=== PATIENT | male | born 1995 | race Caucasian/White ===

== ENCOUNTER 2019-08-31 20:41 | Emergency (ER) | payer SELFPAY ==
[2019-08-31] MEDS ORDERED: BUPIVACAINE 0.5% PF 10 ML VIAL ONE (21:38)
[2019-08-31] MEDS ORDERED: LIDOCAINE 1% MPF 5 ML VIAL ONE (21:38)
--- NOTE | 2019-08-31 22:19 | ER ---
Nurse's Notes [facility] Name: Ryan Leonard Age: 24 yrs Sex: Male : 1995 Arrival Date: 08/31/2019 Time: 20:43 Bed 10 Private MD: Diagnosis: Laceration without foreign body of left thumb with damage to nail Presentation: 08/31 20:48 Presenting complaint: Patient states: Laceration to tip of left thumb with kitchen lp1 knife, not actively bleeding at this time. Transition of care: patient was not received from another setting of care. Onset of symptoms was August 31, 2019. Risk Assessment: Do you want to hurt yourself or someone else? Patient reports no desire to harm self or others. Initial Sepsis Screen: Does the patient meet any 2 criteria? No. Patient's initial sepsis screen is negative. Does the patient have a suspected source of infection? No. Patient's initial sepsis screen is negative. Care prior to arrival: None. 20:48 Method Of Arrival: Ambulatory lp1 20:48 Acuity: MICHELLE 4 lp1 Historical: - Allergies: 20:49 No Known Allergies; lp1 - Home Meds: 20:49 None [Active]; lp1 - PMHx: 20:49 None; lp1 - PSHx: 20:49 Knee surgery; lp1 - Immunization history:: Adult Immunizations up to date, Last tetanus immunization: up to date. - Social history:: Smoking status: Patient/guardian denies using tobacco. - Ebola Screening: : No symptoms or risks identified at this time. Screenin:49 Abuse screen: Denies threats or abuse. Denies injuries from another. Nutritional lp1 screening: No deficits noted. Tuberculosis screening: No symptoms or risk factors identified. Fall Risk None identified. Assessment: 20:40 Neuro: Level of Consciousness is awake, alert. Cardiovascular: Capillary refill < 3 rr5 seconds Patient's skin is warm and dry. Respiratory: Airway is patent Respiratory effort is even, unlabored, Respiratory pattern is regular, symmetrical. GI: No signs and/or symptoms were reported involving the gastrointestinal system. Derm: Skin is healthy with good turgor, Skin temperature is warm. Musculoskeletal: Capillary refill < 3 seconds. 20:40 General: Appears in no apparent distress. comfortable, Behavior is calm, cooperative, rr5 appropriate for age. : No signs and/or symptoms were reported regarding the genitourinary system. EENT: No signs and/or symptoms were reported regarding the EENT system. Derm: Wound noted thumb Wound is lacerated wound. Musculoskeletal: Circulation, motion, and sensation intact. 20:40 Pain: Denies pain. rr5 21:20 Reassessment: Patient appears in no apparent distress at this time. No changes from rr5 previously documented assessment. Patient is alert, oriented x 3, equal unlabored respirations, skin warm/dry/pink. 22:31 Reassessment: Patient appears in no apparent distress at this time. Patient is alert, rr5 oriented x 3, equal unlabored respirations, skin warm/dry/pink. discharge instruction given and explained without complaints made. Vital Signs: 20:49 BP 149 / 92; Pulse 81; Resp 18; Temp 98.1(O); Pulse Ox 97% on R/A; Weight 124.74 kg; lp1 Height 6 ft. 0 in. (182.88 cm); Pain 0/10; 22:30 BP 131 / 74; Pulse 75; Resp 17; Pulse Ox 99% ; rr5 20:49 Body Mass Index 37.30 (124.74 kg, 182.88 cm) lp1 ED Course: 20:43 Patient arrived in ED. cl3 20:48 Triage completed. lp1 20:48 Arm band placed on left wrist. lp1 20:49 Patient has correct armband on for positive identification. lp1 20:51 Mason Acosta RN is Primary Nurse. rr5 21:28 Kaden Stack MD is Attending Physician. [facility] 21:33 Jennifer Jackson FNP-C is [facility]. kb 21:33 Kaden Stack MD is Attending Physician. kb 22:15 Assist provider with laceration repair on left hand that was 2.5 cm. or less using rr5 sutures. Set up tray. Performed by Jennifer SHEA Dressed with 4X4s, Neosporin, Patient tolerated well. 22:31 Patient did not have IV access during this emergency room visit. rr5 Administered Medications: 21:42 Drug: Bupivacaine (0.5 %) 1 vials {Note: given by jennifer dixon .} Volume: 10 ml; Route: rr5 Infiltration; 22:30 Follow up: Response: No adverse reaction rr5 21:42 Drug: Lidocaine (1 %) 1 vials {Note: given by jennifer DIXON.} Volume: 5 ml; Route: rr5 Infiltration; 22:30 Follow up: Response: No adverse reaction rr5 Outcome: 22:18 Discharge ordered by . piyush 22:31 Discharged to home ambulatory, with family. rr5 22:31 Condition: stable 22:31 Discharge instructions given to patient, Instructed on discharge instructions, follow up and referral plans. Demonstrated understanding of instructions, follow-up care. 22:33 Patient left the ED. rr5 Signatures: Jennifer Jackson, PLASTIC SHEETS SUPERVISOR-C PLASTIC SHEETS SUPERVISOR-Ckb Kaden Stack MD MD cha Pena, Laura RN RN lp1 Mason Acosta RN RN rr5 Yoni Payton cl3 Corrections: (The following items were deleted from the chart) 21:03 20:40 General: Appears in no apparent distress. comfortable, Behavior is appropriate rr5 for age, rr5 21:03 20:40 Pain: Unable to use pain scale. FLACC scale score is 0 out of 10. rr5 rr5 21:03 20:40 : No signs and/or symptoms were reported regarding the genitourinary system. rr5rr5 21:03 20:40 EENT: Ear canal clear on left ear and right ear Nares with foreign body noted on rr5 right white foreign body noted.. rr5 21:03 20:40 Derm: Skin is intact, Skin temperature is warm rr5 rr5 21:05 21:01 Musculoskeletal: Circulation, motion, and sensation intact. rr5 rr5 21:05 21:01 Derm: Wound noted thumb Wound is lacerated wound rr5 rr5 21:05 21:01 General: Appears in no apparent distress. uncomfortable, Behavior is calm, rr5 cooperative, appropriate for age, rr5 21:05 21:01 Pain: Complains of pain in thumb Pain does not radiate. Pain Quality of pain is rr5 described as aching, Pain began suddenly, Is continuous, rr5 21:05 21:01 : No signs and/or symptoms were reported regarding the genitourinary system. rr5rr5 21:05 21:01 EENT: No signs and/or symptoms were reported regarding the EENT system. rr5 rr5 22:33 22:31 No provider procedures requiring assistance completed. rr5 rr5
--- NOTE | 2019-08-31 22:19 | EDPHYS ---
Physician Documentation [facility] Name: Ryan Leonard Age: 24 yrs Sex: Male : 1995 Arrival Date: 08/31/2019 Time: 20:43 Bed 10 Private MD: ED Physician Kaden Stack HPI: 08/31 21:44 This 24 yrs old Male presents to ER via Ambulatory with complaints of kb Laceration To Thumb. 21:44 The patient has a laceration related to: cooking, occurred at home, and there are no kb complicating factors. The injury was accidental. The laceration(s) is(are) located on the dorsal aspect of distal phalanx of left thumb. Onset: The symptoms/episode began/occurred just prior to arrival. Associated signs and symptoms: The patient has no apparent associated signs or symptoms. The patient has not experienced similar symptoms in the past. The patient has not recently seen a physician. Pt reports he was chopping vegetables and accidentally cut his thumb. Historical: - Allergies: 20:49 No Known Allergies; lp1 - Home Meds: 20:49 None [Active]; lp1 - PMHx: 20:49 None; lp1 - PSHx: 20:49 Knee surgery; lp1 - Immunization history:: Adult Immunizations up to date, Last tetanus immunization: up to date. - Social history:: Smoking status: Patient/guardian denies using tobacco. - Ebola Screening: : No symptoms or risks identified at this time. ROS: 21:43 Constitutional: Negative for fever, chills, and weight loss, Neck: Negative for injury, kb pain, and swelling, Cardiovascular: Negative for chest pain, palpitations, and edema, Respiratory: Negative for shortness of breath, cough, wheezing, and pleuritic chest pain, Abdomen/GI: Negative for abdominal pain, nausea, vomiting, diarrhea, and constipation, Back: Negative for injury and pain, MS/Extremity: Negative for injury and deformity, Neuro: Negative for headache, weakness, numbness, tingling, and seizure. 21:43 Skin: Positive for laceration(s), of the dorsal aspect of distal phalanx of left thumb. Exam: 21:41 Constitutional: This is a well developed, well nourished patient who is awake, alert, kb and in no acute distress. Head/Face: Normocephalic, atraumatic. ENT: Nares patent. No nasal discharge, no septal abnormalities noted. Tympanic membranes are normal and external auditory canals are clear. Oropharynx with no redness, swelling, or masses, exudates, or evidence of obstruction, uvula midline. Mucous membranes moist. Neck: Trachea midline, no thyromegaly or masses palpated, and no cervical lymphadenopathy. Supple, full range of motion without nuchal rigidity, or vertebral point tenderness. No Meningismus. Chest/axilla: Normal chest wall appearance and motion. Nontender with no deformity. No lesions are appreciated. Cardiovascular: Regular rate and rhythm with a normal S1 and S2. No gallops, murmurs, or rubs. Normal PMI, no JVD. No pulse deficits. Respiratory: Lungs have equal breath sounds bilaterally, clear to auscultation and percussion. No rales, rhonchi or wheezes noted. No increased work of breathing, no retractions or nasal flaring. Abdomen/GI: Soft, non-tender, with normal bowel sounds. No distension or tympany. No guarding or rebound. No evidence of tenderness throughout. MS/ Extremity: Pulses equal, no cyanosis. Neurovascular intact. Full, normal range of motion. Neuro: Awake and alert, GCS 15, oriented to person, place, time, and situation. Cranial nerves II-XII grossly intact. Motor strength 5/5 in all extremities. Sensory grossly intact. Cerebellar exam normal. Normal gait. 21:41 Skin: injury, laceration(s), the wound is approximately 2 cm(s), of the dorsal aspect of distal phalanx of left thumb, that can be described as clean, no foreign body, linear, without bleeding. Vital Signs: 20:49 BP 149 / 92; Pulse 81; Resp 18; Temp 98.1(O); Pulse Ox 97% on R/A; Weight 124.74 kg; lp1 Height 6 ft. 0 in. (182.88 cm); Pain 0/10; 22:30 BP 131 / 74; Pulse 75; Resp 17; Pulse Ox 99% ; rr5 20:49 Body Mass Index 37.30 (124.74 kg, 182.88 cm) lp1 Procedures: 21:42 Nerve block: (digital) of dorsal aspect of distal phalanx of left thumb Medication: kb Lidocaine 1% without epinephrine Marcaine 0.5%, Amount: 6 mls were injected, Effect: the patient has resolution of the pain, Set up for procedure. Performed by Jennifer SHEA Patient tolerated well. Laceration: 22:17 Wound Repair of 2cm ( 0.8in ) subcutaneous laceration to dorsal aspect of distal kb phalanx of left thumb. Linear shaped.. Distal neuro/vascular/tendon intact. Anesthesia: Digital block administered with 1% lidocaine. Wound prep: Extensive cleansing with hibiclenz by me, Wound irrigation with saline by me. Skin closed with 5 5-0 Prolene using simple sutures and sterile technique. Dressed with Neosporin. Patient tolerated well. MDM: 21:33 Patient medically screened. kb 21:42 Data reviewed: vital signs, nurses notes. Data interpreted: Pulse oximetry: on room air kb is 97 %. Interpretation: normal. Counseling: I had a detailed discussion with the patient and/or guardian regarding: the historical points, exam findings, and any diagnostic results supporting the discharge/admit diagnosis, the need for outpatient follow up, a family practitioner, to return to the emergency department if symptoms worsen or persist or if there are any questions or concerns that arise at home. 08/31 21:33 Order name: Prolene, Sutures; Complete Time: 22:30 kb 08/31 21:33 Order name: Dressing - Wound; Complete Time: 22:30 kb 08/31 21:33 Order name: Gloves, Sterile; Complete Time: 22:30 kb 08/31 21:33 Order name: Setup Suture Tray; Complete Time: 22:30 kb Administered Medications: 21:42 Drug: Bupivacaine (0.5 %) 1 vials {Note: given by jennifer ann .} Volume: 10 ml; Route: rr5 Infiltration; 22:30 Follow up: Response: No adverse reaction rr5 21:42 Drug: Lidocaine (1 %) 1 vials {Note: given by jennifer MANRIQUEZ} Volume: 5 ml; Route: rr5 Infiltration; 22:30 Follow up: Response: No adverse reaction rr5 Disposition: 09/01 05:48 Co-signature as Attending Physician, Kaden Stack MD I agree with the assessment and kailee plan of care. Disposition: 08/31/19 22:18 Discharged to Home. Impression: Laceration without foreign body of left thumb with damage to nail. - Condition is Stable. - Discharge Instructions: Laceration Care, Adult, [id number]. - Medication Reconciliation Form, Thank You Letter, Antibiotic Education, Prescription Opioid Use, Work release form form. - Follow up: Emergency Department; When: As needed; Reason: Worsening of condition. Follow up: Private Physician; When: 2 - 3 days; Reason: Recheck today's complaints, Continuance of care, Re-evaluation by your physician. Signatures: Jennifer Jackson, HAND BOX COVERER-C HAND BOX COVERER-CkKaden Ross MD MD cha Pena, Laura, RN RN lp1 Mason Acosta RN RN rr5 Corrections: (The following items were deleted from the chart) 08/31 22:33 22:18 08/31/2019 22:18 Discharged to Home. Impression: Laceration without foreign body rr5 of left thumb with damage to nail. Condition is Stable. Discharge Instructions: Laceration Care, Adult, [id number]. Forms are Medication Reconciliation Form, Thank You Letter, Antibiotic Education, Prescription Opioid Use. Follow up: Emergency Department; When: As needed; Reason: Worsening of condition. Follow up: Private Physician; When: 2 - 3 days; Reason: Recheck today's complaints, Continuance of care, Re-evaluation by your physician. kb
[2019-08-31 22:53] VITALS: TEMP 98.1
[2019-08-31 22:54] VITALS: BP 131/74; O2SAT 99
== END 2019-08-31 22:33 | disposition home or self-care (01) ==
LOC: ER 20:41
PROC: 0JQK0ZZ Repair Left Hand Subcutaneous Tissue and Fascia, Open Approach (ICD-10-PCS; principal; 2019-08-31)
DX: S61.112A Laceration without foreign body of left thumb with damage to nail, initial encounter (principal); W45.8XXA Other foreign body or object entering through skin, initial encounter; Y93.G3 Activity, cooking and baking; Y92.9 Unspecified place or not applicable
CPT/HCPCS: 64450; 99283